=== PATIENT | female | born 1970 | race Caucasian/White ===

== ENCOUNTER 2016-12-09 01:51 | Emergency (ER) | payer MEDICAID ==
[2016-12-09 01:51] VITALS: BMI 32.1
[2016-12-09 02:07] VITALS: RESP 18; O2SAT 98
[2016-12-09] MEDS ORDERED: Morphine 4 mg/ml ISec IVP STA (02:13)
[2016-12-09] MEDS ORDERED: Sodium Chloride 0.9% 1,000 ML IV STA (02:13)
[2016-12-09] MEDS ORDERED: DiphenhydrAMINE 50 mg/ml Inj IVP STA (02:13)
[2016-12-09 02:45] LABS: BASO # 0.03 K/mm3 (0.0-2.0); BASO % 0.4 % (0.0-3.0); EOS # 0.2 (0.0-0.7); EOS % 2.6 % (1.5-5.0); GRAN # 4.11 (1.4-6.5); GRAN % 48.3 % (50.0-68.0); HEMOGLOBIN 12.8 g/dL (12.0-16.0); LYMPH # 3.6 (1.2-3.4); LYMPH % 42.4 % (22.0-35.0); MEAN CELL VOLUME 81.9 fl (80.0-105.0); MEAN CORPUSCULAR HEMOGLOBIN 28.2 pg (25.0-35.0); MEAN CORPUSCULAR HGB CONC 34.4 g/dl (31.0-37.0); MONO # 0.5 (0.1-0.6); MONO % 6.3 % (1.0-6.0); PLATELET COUNT 323 10^3/uL (120.0-450.0); RBC 4.54 10^6/uL (3.5-6.1); WHITE BLOOD COUNT 8.5 10^3/ul (4.5-11.0)
[2016-12-09 02:49] LABS: ALB/GLOB RATIO 1.1 (1.1-1.8); ALBUMIN 4.4 g/dL (3.0-4.8); ALT/SGPT 31 U/L (7-56); AST/SGOT 29 U/L (15-39); BLOOD UREA NITROGEN 13 mg/dL (7-21); CALCIUM 9.3 mg/dL (8.4-10.5); GFR AFRICAN-AMERICAN > 60; GFR NON-AFRICAN AMERICAN > 60
[2016-12-09 02:52] LABS: INR 0.95 (0.93-1.08); PROTHROMBIN TIME 10.3 Seconds (9.9-11.8)
--- NOTE | 2016-12-09 02:54 | ED PDOC ---
Arrival/HPI - General Chief Complaint: Headache Time Seen by Provider: 12/09/16 02:06 Historian: Patient - History of Present Illness Narrative History of Present Illness (Text): 12/09/16 02:51 Dread Edwards is a 46 year old female who presents to the emergency department complaining of sudden onset headache which began yesterday morning. Reports that headache is mostly posterior and states symptoms are associated with nausea and photophobia. Notes quality of headache is different from previous headaches. Denies fever, chills, dizziness, chest pain, SOB, abdominal pain, vomiting, diarrhea, urinary symptoms, or any other complaints at this time. Time/Duration: Other (yesterday morning ) Symptom Onset: Gradual Severity Level: Mild Activities at Onset: Light Past Medical History - Provider Review Nursing Documentation Reviewed: Yes - Infectious Disease Hx of Infectious Diseases: None - Tetanus Immunization Tetanus Immunization: Unknown - Cardiac Hx Cardiac Disorders: No - Pulmonary Hx Respiratory Disorders: No - Neurological Hx Neurological Disorder: No - HEENT Hx HEENT Disorder: No - Renal Hx Renal Disorder: Yes Other/Comment: KIDNEY INFECTION - Endocrine/Metabolic Hx Endocrine Disorders: No - Hematological/Oncological Hx Blood Disorders: No - Integumentary Hx Dermatological Disorder: No - Musculoskeletal/Rheumatological Hx Musculoskeletal Disorders: No - Gastrointestinal Hx Gastrointestinal Disorders: No - Genitourinary/Gynecological Hx Genitourinary Disorders: Yes Hx Urinary Tract Infection: Yes - Psychiatric Hx Psychophysiologic Disorder: No Hx Substance Use: No - Surgical History Hx Hysterectomy: Yes - Anesthesia Hx Anesthesia: Yes Hx Anesthesia Reactions: No Hx Malignant Hyperthermia: No - Suicidal Assessment Feels Threatened In Home Enviroment: No Family/Social History - Physician Review Nursing Documentation Reviewed: Yes Family/Social History: No Known Family HX Smoking Status: Never Smoked Hx Alcohol Use: No Hx Substance Use: No Hx Substance Use Treatment: No Allergies/Home Meds Allergies/Adverse Reactions: Allergies Penicillins Allergy (Verified 12/09/16 02:44) ANAPHYLAXIS Home Medications: Home Meds Medication Instructions Recorded Confirmed Cephalexin [Keflex] 500 mg PO BID 03/04/16 03/04/16 Physical Exam - Physical Exam Narrative Physical Exam (Text): Constitutional: Normal. absent: Fatigue, Weight Change, Fevers Eyes: Present: Photophobia ENT: Normal Respiratory: Normal absent: SOB, Cough, Sputum Cardiovascular: Normal absent: Chest pain, Palpitations, Syncope Gastrointestinal:Present: Nausea absent: Abdominal pain, Diarrhea, Vomiting Genitourinary: Normal. absent: Dysuria, Frequency, Hematuria Musculoskeletal: Normal. absent: Arthralgias, Back Pain, Neck Pain Skin: Normal Neurological: Present: Headache absent: Focal Weakness Endocrine: Normal Hemo/Lymphatic: Normal Psychiatric: Normal - Physical exam Patient appears age appropriate, speaking full sentences without difficulty. - Systems Exam Head: Present: Atraumatic, Normocephalic Pupils: Present: PERRL Extraocular Muscles: Present: EOMI Conjunctiva: Present: Normal Mouth: Present: Moist Mucous Membranes Neck: Present: Normal Range of Motion. No: MIDLINE TENDERNESS, Paraspinal Tenderness Respiratory/Chest: Present: Clear to Auscultation, Good Air Exchange. No: Respiratory Distress, Accessory Muscle Use, Tachypnic Cardiovascular: Present: Regular Rate and Rhythm, Normal S1, S2, Peripheral Pulses Present. No: Murmurs Abdomen: Present: Normal Bowel Sounds, No: Tenderness, Peritoneal Signs, Rebound, Guarding, Distention Back: Present: Normal Inspection. No: Midline Tenderness, Paraspinal Tenderness Upper Extremity: Present: Normal Inspection. No: Cyanosis, Edema Lower Extremity: Present: Normal Inspection. No: Edema Neurological: Present: GCS=15, Speech Normal, cranial nerves II through XII fully intact with no cerebellar abnormality, neuro-sensory fully intact. No focal neurological deficits. Skin: Present: Warm, Dry, Normal Color. No: Rashes Lymphatic: Present: OX3, NI, NC Psychiatric: Present: Alert, Oriented x 3, Normal Insight, Normal Concentration Vital Signs Reviewed: Yes Vital Signs Temp Pulse Resp BP Pulse Ox 12/09/16 02:06 98.1 F 87 18 150/92 H 98 Temperature: Afebrile Blood Pressure: Normal Pulse: Regular Respiratory Rate: Normal Appearance: Positive for: Well-Appearing, Non-Toxic, Comfortable Pain Distress: Mild Mental Status: Positive for: Alert and Oriented X 3 Medical Decision Making ED Course and Treatment: 12/09/16 02:56 Impression: A 46 year old female who presents to the ed complaining of sudden onset headache associated with nausea and photophobia since yesterday morning. No focal neurological deficits on examination. Differential Diagnosis included but are not limited to: SAH vs. migraine headache Plan: -- CT Head -- Labs -- Tylenol -- Benadryl -- Reglan -- Morphine -- IV fluids -- Reassess and disposition Progress Notes: 12/09/16 04:15 CT Head reviewed: Dictated and Authenticated by: Mary Pereira MD IMPRESSION: No acute findings. 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 I explained that the next step in workup and management is to perform a lumbar puncture and a full explanation of procedure and its indication was given Patient refused The patient refuses further workup, testing, and procedures and wishes to leave the Emergency Department against my medical advice. Patient was told that a lumbar puncture is necessary and a full explanation of the reasons why was given , and understood by patient. The risks of leaving were explained and include worsening of condition, and permanent disability and from an undiagnosed or untreated condition. The patient accepts these risks, and is in my judgment is competent and capable of understanding the clinical situation and my explanation of the risks of leaving. Patient was given the opportunity to ask questions and change mind. The patient was instructed regarding the best care for the present symptoms, and to follow up with her primary physician and a neurologist as soon as possible, or return to the Emergency Department at any time for continuing care. Patient's also present during the whole conversation and encounter, also asking to take his home and does not wish for her to stay Family advised to return to the ER right away should they change their minds, or if new or worsening symptoms arise. - Lab Interpretations Lab Results: 12/09/16 02:20 12/09/16 02:20 Lab Results 12/09/16 02:55: Blood Type Confirm O POSITIVE 12/09/16 02:20: Blood Type O POSITIVE, Antibody Screen Negative, BBK History Checked No verified bt 12/09/16 02:20: Sodium 139, Potassium 3.9, Chloride 103, Carbon Dioxide 25, Anion Gap 15, BUN 13, Creatinine 0.6, Est GFR ( Amer) > 60, Est GFR (Non- Af Amer) > 60, Random Glucose 97, Calcium 9.3, Total Bilirubin 0.2, AST 29, ALT 31, Alkaline Phosphatase 72, Total Protein 8.2, Albumin 4.4, Globulin 3.9, Albumin/Globulin Ratio 1.1 12/09/16 02:20: PT 10.3, INR 0.95, APTT 27.2 12/09/16 02:20: WBC 8.5, RBC 4.54, Hgb 12.8, Hct 37.2, MCV 81.9, MCH 28.2, MCHC 34.4, RDW 14.0, Plt Count 323, MPV 10.0, Gran % 48.3 L, Lymph % (Auto) 42.4 H, [place] % (Auto) 6.3 H, Eos % (Auto) 2.6, Baso % (Auto) 0.4, Gran # 4.11, Lymph # 3.6 H, [place] # 0.5, Eos # 0.2, Baso # 0.03 - RAD Interpretation Narrative RAD Interpretations (Text): 12/09/16 04:14 CT Head Without Intravenous Contrast Dictated and Authenticated by: Mary Pereira MD COMPARISON: No relevant prior studies available. FINDINGS: No intracranial hemorrhage. No intracranial edema. No evidence of infarct. The sinuses and mastoid air cells are clear. IMPRESSION: No acute findings. Radiology Orders: 12/09/16 02:13 HEAD W/O CONTRAST [CT] Stat Family [employer] Teacher: Radiologist - Medication Orders Current Medication Orders: Discontinued Medications Acetaminophen (Tylenol 325mg Tab) 975 mg PO STAT STA Stop: 12/09/16 02:14 Last Admin: 12/09/16 02:55 Dose: 325 mg Comments: Patient refused 2 pills. only took 1. Diphenhydramine HCl (Benadryl) 50 mg IVP STAT STA Stop: 12/09/16 02:14 Last Admin: 12/09/16 02:50 Dose: 50 mg Sodium Chloride (Sodium Chloride 0.9%) 1,000 mls @ 1,000 mls/hr IV .Q1H STA Stop: 12/09/16 03:12 Last Admin: 12/09/16 02:44 Dose: 1,000 mls/hr Metoclopramide HCl (Reglan) 10 mg IVP STAT STA Stop: 12/09/16 02:14 Last Admin: 12/09/16 02:56 Dose: 10 mg Morphine Sulfate (Morphine) 6 mg IVP STAT STA Stop: 12/09/16 02:14 Last Admin: 12/09/16 02:56 Dose: Not Given Non-Admin Reason: Patient Refused - Scribe Statement The provider has reviewed the documentation as recorded by the Jaspalibe Yumiko Juni Provider Attestation: All medical record entries made by the Scribe were at my direction and personally dictated by me. I have reviewed the chart and agree that the record accurately reflects my personal performance of the history, physical exam, medical decision making, and the department course for this patient. I have also personally directed, reviewed, and agree with the discharge instructions and disposition. Disposition/Present on Arrival - Present on Arrival Any Indicators Present on Arrival: No History of DVT/PE: No History of Uncontrolled Diabetes: No Urinary Catheter: No History of Decub. Ulcer: No History Surgical Site Infection Following: None - Disposition Have Diagnosis and Disposition been Completed?: Yes Diagnosis: Headache Disposition: AGAINST MEDICAL ADVICE Disposition Time: 05:11 Patient Plan: Discharge Condition: GUARDED Discharge Instructions (ExitCare): Acute Headache (ED) Additional Instructions: PLEASE RETURN TO THE EMERGENCY DEPARTMENT FOR NEW OR WORSENING SYMPTOMS. RETURN RIGHT AWAY IF YOU CANNOT FOLLOW UP WITH YOUR PRIMARY CARE DOCTOR, CLINIC, OR SPECIALIST IN 1-2 DAYS. Referrals: Burak Stovall MD [Primary Care Provider] - Follow up with primary Chad Miller MD [Staff Provider] - Follow up with primary Flaquito Aranda MD [Staff Provider] - Follow up with primary Forms: [employer] Mobile [employer] (Uzbek)
[2016-12-09 03:02] LABS: PARTIAL THROMBOPLASTIN TIME 27.2 Seconds (23.7-30.8)
--- NOTE | 2016-12-09 03:59 | CT ---
EXAM: CT Head Without Intravenous Contrast CLINICAL HISTORY: 46 years old, female; Signs and symptoms; Other: [place], vomiting; Additional info: HERNÁNDEZ, n/v, photophobia TECHNIQUE: Axial computed tomography images of the head/brain without intravenous contrast. All CT scans at this facility use one or more dose reduction techniques, viz.: automated exposure control; ma/kV adjustment per patient size (including targeted exams where dose is matched to indication; i.e. head); or iterative reconstruction technique. EXAM DATE/TIME: 12/09/2016 2:13 AM COMPARISON: No relevant prior studies available. FINDINGS: No intracranial hemorrhage. No intracranial edema. No evidence of infarct. The sinuses and mastoid air cells are clear. IMPRESSION: No acute findings.
[2016-12-09 05:25] VITALS: BP 127/87; PULSE 79; TEMP 97.6
== END 2016-12-09 05:15 | disposition left against medical advice (07) ==
LOC: ED 01:51
DX: R51 Headache (principal)
CPT/HCPCS: 70450; 80053; 85025; 85610; 85730; 86850; 86900; 96361; 96374; 96375; 99285; J1200; J2765; J7040